=== PATIENT | male | born 2000 | race Caucasian/White ===

== ENCOUNTER 2022-03-04 13:05 | Emergency (ER) | payer BC, SELFPAY ==
[2022-03-04 13:17] VITALS: PULSE 84; O2SAT 97
[2022-03-04 13:23] VITALS: BP 170/81; PULSE 95; RESP 20; TEMP 37; O2SAT 98; BMI 35.9
--- NOTE | 2022-03-04 13:26 | XR_ITS ---
PROCEDURE INFORMATION: Exam: XR Right Ankle Exam date and time: 03/04/2022 1:40 PM Age: 21 years old Clinical indication: Injury or trauma; Work related; Fracture, traumatic; Displaced; Fibula; Patient HX: Fall, right ankle pain and swelling TECHNIQUE: Imaging protocol: Radiologic exam of the Right ankle. Views: 3 or more views. COMPARISON: No relevant prior studies available. FINDINGS: Bones/joints: There is an acute obliquely oriented fracture distal fibula extending for 6 cm in length ending at the level of the tibial plafond. There is 0.5 cm lateral displacement of the distal fracture component. There is some malalignment at the ankle mortise with widening of the medial clear space that may be due to underlying ligamentous injury. No other fractures are detected. Soft tissues: There is mild soft tissue swelling adjacent to the medial and lateral malleolus. IMPRESSION: Acute slightly displaced fracture distal fibula with mild malalignment at the ankle mortise. The
--- NOTE | 2022-03-04 13:34 | PC.NURSE ---
PT REQUESTING PAIN MEDICATION
--- NOTE | 2022-03-04 13:42 | PC.NURSE ---
MEDICATED PER EMAR, NO FURTHER NEEDS AT THIS TIME
--- NOTE | 2022-03-04 14:27 | PC.NURSE ---
DR. BOTELLO AT BEDSIDE
--- NOTE | 2022-03-04 14:33 | HMH.EDGENADL ---
Discharge Plan Disposition Patient Disposition: Home, Self-Care Condition: Good Prescriptions Prescriptions: New oxycodone-acetaminophen [Percocet] 7.5-325 mg tablet 1 tab PO Q6H PRN (Reason: pain) Qty: 20 0RF Referrals Follow up/Referrals: Richie Estevez JR, MD [Physician] - See instructions Ziggy Suarez MD [Primary Care Provider] - See instructions Activity Restrictions/Add. Instructions Additional Instructions/Restrictions: Percocet as needed for pain. Crutches and splint. Do not put weight on your right ankle. See Dr. Estevez (see Farzana in his office) tomorrow or Saturday. Call tomorrow morning to make that appointment. Treat your splint like you would a cast: Do not get it wet (cover with a plastic bag while bathing or showering). If the splint feels too tight, you may loosen the mony wrap covering it, but do not remove the splint. It is very important to try and reduce the swelling in your ankle. Elevate your ankle on several pillows. You may ice the fracture by applying an ice pack over the top of the splint, without removing the splint. Return to an emergency department immediately if you have uncontrollable pain, loss of feeling or inability to move your injured extremity. Additional instructions for CONTROLLED SUBSTANCES: You have been prescribed a medication that is a controlled substance. Controlled substances include pain medications known as opiates and sedative nerve medications known as benzodiazepines. Tramadol, fioricet, and gabapentin are also controlled substances. Some common opiates include: Codeine (such as Tylenol #3) Hydrocodone (Vicodin, Lortab, Lorcet, [place]) Oxycodone (Percocet, Percodan, Oxycodone, Oxy IR) Some common benzodiazepines include: Diazepam (Valium) Lorazepam (Ativan) Alprazolam (Xanax) Clonazepam (Klonopin) Oxazepam (Serax) All of these controlled substances are highly addictive and frequently abused. Misuse can and frequently does lead to addiction as well as overdose and . Medication should be stored in a locked cabinet or other secure storage unit. Do not store the medication in a motor vehicle. Short term supplies, 3 days or less, are prescribed because of the highly addictive nature of the medication. Any of the controlled substance medication NOT taken should be disposed of properly and NOT SAVED. The recommended method of disposing of unused medications is: Place the medicines in a sealable plastic bag. If the medicine is a solid, crush it or add water to dissolve it. Add something undesirable (cat litter, coffee grounds, etc.) Dispose of sealed bag in household trash Do not flush or pour unused medicines down a sink or drain. Controlled substances should not be shared, given away or sold. Because of the addictive nature and frequent abuse, these medications are sometimes stolen. These medications should be kept in a safe place where they cannot be stolen. Do not keep them in your car or purse. Lost or stolen prescriptions for controlled substances WILL NOT BE REFILLED in this emergency department, regardless of whether a police report was filed. Clinical Impressions Clinical Impression: Closed fibular fracture, Tear of deltoid ligament of ankle Instructions Patient Instructions: How to Use Crutches, DI for Ankle Fracture, How to Take Care of Your Splint Discharge ED Provider: Zaire Gutierrez General Adult HPI General Chief complaint: Extremity Injury, Lower Stated complaint: [id number], Right Ankle Pain Time Seen by Provider: 03/04/22 14:26 Mode of Arrival: Wheelchair Limitations: No Limitations Description of Symptoms (Recalled from ER Triage Doc. by RN): INJURY TO RIGHT ANKLE LAST NIGHT. PAIN SWELLING AND BRUISING History of Present Illness HPI narrative: Patient thinks he fell down some stairs at about 9 PM last night. He does not recall the accident well because he was drinking at the time. He says that h
--- NOTE | 2022-03-04 14:33 | PC.NURSE ---
has been paged
--- NOTE | 2022-03-04 14:34 | PC.NURSE ---
on the phone with
--- NOTE | 2022-03-04 15:00 | PC.NURSE ---
PT MEDICATED AT THIS TIME PER EMAR, URINAL PROVIDED. NO NEEDS AT THIS TIME. FAMILY AT BEDSIDE
[2022-03-04 15:30] VITALS: BP 144/77; PULSE 78; RESP 18; TEMP 36.7; O2SAT 99
--- NOTE | 2022-03-04 15:33 | PC.NURSE ---
right posterior with stirrup splint placed on patient without complication. Pt also given crutches. Told Mother and patient instructions on care over splint.
== END 2022-03-04 15:30 | disposition home or self-care (01) ==
PROVIDERS: Emergency Provider Emergency Medicine; PCP Internal Medicine Adolescent Medicine
DX: S89.301A Unspecified physeal fracture of lower end of right fibula, initial encounter for closed fracture (principal); S93.421A Sprain of deltoid ligament of right ankle, initial encounter; X58.XXXA Exposure to other specified factors, initial encounter
CPT/HCPCS: 29515; 73610; 96372; 99284; J2405

== ENCOUNTER 2022-06-06 17:22 | Emergency (ER) | payer BC, SELFPAY ==
--- NOTE | 2022-06-06 17:31 | PC.NURSE ---
er at bedside
--- NOTE | 2022-06-06 17:34 | [facility].EDGENADL ---
Discharge Plan Disposition Chief Complaint: PAIN Prescriptions Prescriptions: No Action oxycodone-acetaminophen [Percocet] 7.5-325 mg tablet 1 tab PO Q6H PRN (Reason: pain) Qty: 20 0RF Referrals Follow up/Referrals: Ziggy Suarez MD [Primary Care Provider] - See instructions Activity Restrictions/Add. Instructions Additional Instructions/Restrictions: Your blood test today was abnormal. This raises the suspicion that you may have a blood clot in your leg. It does not prove that you have a blood clot. You need a special type of ultrasound of your leg to determine whether you have a blood clot or not. Unfortunately, today this ultrasound is not available until tomorrow at this hospital. Therefore, we gave you a blood thinner shot today which will be good until tomorrow. Please return to the hospital tomorrow with your outpatient order to have an ultrasound done on your right leg. If you have a blood clot the single dose of the blood thinner you got today will not be enough to prevent complications from such a blood clot. Therefore, it is very important that you have this ultrasound done within the next day. Return immediately to the emergency department if you develop chest pain or feel worse in any way. Keep all follow-up appointments as scheduled. Clinical Impressions Clinical Impression: Acute leg pain Instructions Patient Instructions: DI for Leg Pain Discharge ED Provider: Brandt Barrios Adult HPI General Chief complaint: PAIN Stated complaint: R/O BLOOD CLOT R LOWER LEG Time Seen by Provider: 06/06/22 17:34 History of Present Illness HPI narrative: The patient was referred to the emergency department by his physical therapist because there was concern for possible DVT on the right lower extremity. The patient had broken the ankle on the right side in March, has had surgery and is now in physical therapy. He states that there has been increased swelling in the last week or so. He denies any chest pain or shortness of breath. Related Data Previous Rx's Medication Instructions Recorded oxycodone-acetaminophen 7.5 mg-325 1 tab PO Q6H PRN pain #20 tabs 03/04/22 mg tablet (Percocet) Allergies Allergy/AdvReac Type Severity Reaction Status Date / Time SHELLFISH (FOOD) Allergy Mild SWELLING Uncoded 02/19/17 15:07 INGREDIENT: NO KNOWN - NO Allergy Unknown Uncoded 02/19/17 15:07 KNOWN DRUG ALLERGY [facility] Disclaimer: The information contained in this section may have been updated after the patient was seen, as this information can be updated by other users. Medical History (Updated 06/06/22 @ 18:35 by Brandt Barrios MD) No significant past medical history Family History (Updated 03/04/22 @ 14:10 by Azucena Capellan RN) Other No significant family history Social History (Updated 03/04/22 @ 14:10 by Azucena Capellan RN) Smoking Status: Never smoker alcohol intake: current current occupational status: employed Travel in the last 8 weeks: None ROS Obtained: Yes All systems reviewed & no additional complaints except as documented Physical Exam General General appearance: alert Head Head exam: atraumatic Eye Eye exam: Present normal appearance and PERRL; Absent scleral icterus ENT ENT exam: Present normal exam Neck Neck exam: Present normal inspection and full ROM; Absent tenderness or meningismus Chest Chest inspection: Present normal inspection and symmetric chest wall rise; Absent tenderness Respiratory Respiratory exam: Present normal lung sounds bilaterally; Absent respiratory distress or accessory muscle use Cardiovascular Cardiovascular exam: Present regular rate, normal rhythm and normal heart sounds Abdominal Exam Abdominal exam: Present soft and normal bowel sounds; Absent distention, tenderness, heel tap sign, Lerner's sign, Rovsing's sign, tenderness at McBurney's Point or mass Extremities Exam Extremities exam: Present full ROM and e
[2022-06-06 17:35] VITALS: BP 128/85; PULSE 80; RESP 16; TEMP 36.9; O2SAT 97; BMI 40.1
[2022-06-06 18:17] LABS: D-Dimer 0.82 ug/mL (0.0-0.5)
--- NOTE | 2022-06-06 18:31 | PC.NURSE ---
RESP CALLED TO SET UP DOPPLER
[2022-06-06 18:44] VITALS: BP 130/75; PULSE 76; RESP 15; TEMP 36.6
== END 2022-06-06 18:45 | disposition home or self-care (01) ==
LOC: ER 17:33
PROVIDERS: Emergency Provider Emergency Medicine; PCP Internal Medicine Adolescent Medicine
DX: M79.604 Pain in right leg (principal); R22.41 Localized swelling, mass and lump, right lower limb
CPT/HCPCS: 85378; 96372; 99283; 99284

== ENCOUNTER 2022-07-17 17:00 | Outpatient (RCR) | payer BC, SELFPAY | END 2022-07-18 07:30 | disposition home or self-care (01) | LOC: PT 17:00 | PROVIDERS: PCP Internal Medicine Adolescent Medicine; Visit Provider Student in an Organized Health Care Education/Training Program | DX: S82.891D Other fracture of right lower leg, subsequent encounter for closed fracture with routine healing (principal) | CPT/HCPCS: 97010; 97014; 97110; 97112; 97116; 97140; 97163; 97164; 97530; G0283 ==